=== PATIENT | male | born 1960 | race Caucasian/White ===

== ENCOUNTER 2024-01-07 09:43 | Outpatient (RCR) | payer MEDICARE, SELFPAY | END 2024-02-05 12:10 | disposition home or self-care (01) | LOC: PT 09:43 | PROVIDERS: PCP Family Medicine; Visit Provider Nurse Practitioner Family | DX: R29.898 Other symptoms and signs involving the musculoskeletal system (principal); M54.17 Radiculopathy, lumbosacral region | CPT/HCPCS: 97110; 97112; 97140; 97163 ==